=== PATIENT | female | born 1945 | race Caucasian/White ===

== ENCOUNTER → 2025-03-03 13:09 | Outpatient (REF) | payer MEDICARE, BC, SELFPAY | LOC: RAD 13:09 | PROVIDERS: ATTENDING PHYSICIAN Family Medicine | DX: R63.4 Abnormal weight loss (principal) | CPT/HCPCS: 74177; Q9967 ==

== ENCOUNTER → 2025-03-28 15:57 | Outpatient (REF) | payer MEDICARE, BC, SELFPAY | LOC: WDC 15:57 | PROVIDERS: ATTENDING PHYSICIAN Family Medicine | DX: Z12.31 Encounter for screening mammogram for malignant neoplasm of breast (principal) | CPT/HCPCS: 77063; 77067 ==